=== PATIENT | female | born 1975 | race Caucasian/White ===

== ENCOUNTER 2017-07-02 23:54 | Emergency (ER) | payer MEDICAID ==
[~2017-07-02] VITALS: Ht 162.6 cm; Wt 63.2 kg
[2017-07-02 23:56] VITALS: BP 125/80; PULSE 86; RESP 14; TEMP 97.4; O2SAT 98
[2017-07-03] MEDS ORDERED: VENTAER INH (00:05)
[2017-07-03] MEDS ORDERED: SODIUM CHLOR 0.9% 1000 ML INJ 1,000 ML IV ONE (00:49)
--- NOTE | 2017-07-03 00:49 | PD ---
HPI Chief Complaint: Headache Time Seen by Provider: 00:39 Travel History International Travel<30 days: No Contact w/Intl Traveler<30days: No Traveled to known affect area: No History of Present Illness HPI The patient is a 42-year-old female that complains of severe headaches for 2-1/ 2 weeks. The headaches are intermittent and left-sided. She does not have a history of migraine headaches. She does not have a family history migraine headaches. There is been no nausea or vomiting. She denies any focal neurologic change. She states the pain is sharp pain and a 10 over 10. She denies any fever. PFSH Past Medical History Asthma: Yes Cancer: Yes (2008) Chemotherapy: Yes Diminished Hearing: No Deep Vein Thrombosis: Yes Radiation Therapy: Yes Tetanus Vaccination: Unknown Influenza Vaccination: No ?: Not LMP: irregular Past Surgical History Section: Yes Eye Surgery: Yes Social History Alcohol Use: No Tobacco Use: Yes (7 a day) Substance Use: No Allergies-Medications (Allergen,Severity, Reaction): Coded Allergies: shellfish derived (Verified Allergy, Severe, Hives, 07/03/17) Reported Meds & Prescriptions Reported Meds & Active Scripts Active Reported Ventolin Hfa 18 GM Inh (Albuterol Sulfate) 90 Mcg/Act Aer 2 Puff INH Q4-6H PRN Review of Systems Except as stated in HPI: all other systems reviewed are Neg Physical Exam Narrative GENERAL: Well-nourished, well-developed patient in moderate apparent distress with her headache pain. Her vital signs are normal. SKIN: Focused skin assessment warm/dry. HEAD: Normocephalic. EYES: No scleral icterus. No injection or drainage. NECK: Supple, trachea midline. No JVD or lymphadenopathy. The patient flexes neck fully without any hesitation, there is no meningismus present. CARDIOVASCULAR: Regular rate and rhythm without murmurs, gallops, or rubs. RESPIRATORY: Breath sounds equal bilaterally. No accessory muscle use. GASTROINTESTINAL: Abdomen soft, non-tender, nondistended. MUSCULOSKELETAL: No cyanosis, or edema. BACK: Nontender without obvious deformity. No CVA tenderness. NEUROLOGICAL: Awake and alert. Cranial nerves II through XII intact. Motor and sensory grossly within normal limits. Five out of 5 muscle strength in all muscle groups. Normal speech. Data Data Last Documented VS Vital Signs Date Time Temp Pulse Resp B/P (MAP) Pulse Ox O2 Delivery O2 Flow Rate FiO2 07/03/17 02:11 74 16 107/61 (76) 98 Room Air 07/02/17 23:56 97.4 Orders Orders Complete Blood Count With Diff (07/03/17 00:49) Basic Metabolic Panel (Bmp) (07/03/17 00:49) Ecg Monitoring (07/03/17 00:49) Iv Access Insert/Monitor (07/03/17 00:49) Oximetry (07/03/17 00:49) Sodium Chloride 0.9% Flush (Ns Flush) (07/03/17 01:00) Ketorolac Inj (Toradol Inj) (07/03/17 01:00) Prochlorperazine Inj (Compazine Inj) (07/03/17 01:00) Diphenhydramine Inj (Benadryl Inj) (07/03/17 01:00) Sodium Chlor 0.9% 1000 Ml Inj (Ns 1000 M (07/03/17 00:49) Ct Brain W/O Iv Contrast(Rout) (07/03/17 01:15) Hydromorphone Pf Inj (Dilaudid Pf Inj) (07/03/17 01:30) Labs Laboratory Tests Test 07/03/17 01:04 White Blood Count 7.7 TH/MM3 Red Blood Count 4.74 MIL/MM3 Hemoglobin 11.5 GM/DL Hematocrit 35.6 % Mean Corpuscular Volume 75.2 FL Mean Corpuscular Hemoglobin 24.3 PG Mean Corpuscular Hemoglobin Concent 32.3 % Red Cell Distribution Width 14.2 % Platelet Count 151 TH/MM3 Mean Platelet Volume 9.3 FL Neutrophils (%) (Auto) 30.1 % Lymphocytes (%) (Auto) 56.1 % Monocytes (%) (Auto) 9.6 % Eosinophils (%) (Auto) 3.7 % Basophils (%) (Auto) 0.5 % Neutrophils # (Auto) 2.3 TH/MM3 Lymphocytes # (Auto) 4.4 TH/MM3 Monocytes # (Auto) 0.7 TH/MM3 Eosinophils # (Auto) 0.3 TH/MM3 Basophils # (Auto) 0.0 TH/MM3 CBC Comment AUTO DIFF Differential Comment AUTO DIFF CONFIRMED Platelet Estimate NORMAL Platelet Morphology Comment NORMAL Blood Urea Nitrogen 9 MG/DL Creatinine 0.21 MG/DL Random Glucose 90 MG/DL Calcium Level 8.1 MG/DL Sodium Level 140 MEQ/L Potassium Level 4.1 MEQ/L Chloride Level 108 MEQ/L Carbon Dioxide Level 27.7 MEQ/L Anion Gap 4 MEQ/L Estimat Glomerular Filtration Rate 372 ML/MIN MDM Medical Decision Making Medical Screen Exam Complete: Yes Emergency Medical Condition: Yes Medical Record Reviewed: Yes Interpretation(s) The hemoglobin is 11.5 and there are 56% lymphocytes but the rest of the CBC is normal. The basic metabolic profile shows a calcium of 8.1 but is otherwise normal. The CT brain is normal. Differential Diagnosis Migraine headache, headache etiology undetermined, tension headache, cluster headache, normal pressure hydrocephalus-unlikely, intracranial bleed-highly unlikely Narrative Course It is now 0-30 and the patient is sleeping. The patient will get a prescription for Fioricet and follow-up with her primary care physician. It is possible this could be a migraine headache. Diagnosis Primary Impression: Headache Med/Other Pt SpecificInfo: Prescription(s) given Scripts Dzrgvkvbny-Urattgayqzyzx-Dzegbvmv (Fioricet) 50-300-40 Mg Cap 1-2 CAP PO Q6H Y for HEADACHE, #21 CAP 0 Refills Prov: Timmy Douglass MD 07/03/17 Disposition: 01 DISCHARGE HOME Condition: Stable Timmy Douglass MD Jul 03, 2017 00:49
[2017-07-03] MEDS ORDERED: SODIUM CHLORIDE 0.9% FLUSH 10 ML FLUSH IVF PRN (01:00)
[2017-07-03] MEDS ORDERED: diphenhydrAMINE HCL 50 MG/ML VIAL IVP ONE (01:00)
[2017-07-03] MEDS ORDERED: PROCHLORPERAZINE INJ 10 MG/2 ML VIAL IVP ONE (01:00)
[2017-07-03] MEDS ORDERED: KETOROLAC TROMETHAMINE 30 MG/ML (IVP) VIAL IVP ONE (01:00)
[2017-07-03 01:19] LABS: POTASSIUM 4.1 MEQ/L (3.5-5.1)
[2017-07-03 01:21] LABS: AUTOMATED NEUTROPHIL # 2.3 TH/MM3 (1.8-7.7); BASOPHIL % 0.5 % (0.0-2.0); EOSINOPHIL # 0.3 TH/MM3 (0-0.4); EOSINOPHIL % 3.7 % (0.0-4.0); HEMATOCRIT 35.6 % (35.0-46.0); LYMPH % 56.1 % (9.0-44.0); LYMPHOCYTE # 4.4 TH/MM3 (1.0-4.8); MEAN CELL VOLUME 75.2 FL (80.0-100.0); MEAN CORPUSCULAR HEMOGLOBIN 24.3 PG (27.0-34.0); MEAN CORPUSCULAR HGB CONC 32.3 % (32.0-36.0); MONO % 9.6 % (0.0-8.0); NEUT % 30.1 % (16.0-70.0); PLATELET COUNT 151 TH/MM3 (150-450); RED BLOOD COUNT 4.74 MIL/MM3 (4.00-5.30); RED CELL DISTRIBUTION WIDTH 14.2 % (11.6-17.2); WHITE BLOOD COUNT 7.7 TH/MM3 (4.0-11.0)
[2017-07-03 01:22] LABS: BICARBONATE 27.7 MEQ/L (21.0-32.0)
[2017-07-03 01:25] VITALS: BP 117/50; PULSE 86; RESP 16; O2SAT 99
[2017-07-03 01:26] LABS: HEMO FLAGS AUTO DIFF
[2017-07-03] MEDS ORDERED: HYDROmorphone HCL PF 1 MG/ML VIAL IVP ONE (01:30)
[2017-07-03 01:32] VITALS: BP 99/51; PULSE 87; RESP 16; O2SAT 98
[2017-07-03 01:41] LABS: PLATELET ESTIMATE SMEAR NORMAL (NORMAL); PLATELET MORPHOLOGY NORMAL (NORMAL); SCAN/DIFF AUTO DIFF CONFIRMED
--- NOTE | 2017-07-03 02:07 | RADRPT ---
EXAM DATE/TIME: 07/03/2017 01:40 [facility] COMPARISON: No previous studies available for comparison. INDICATIONS : Cephalgia. RADIATION DOSE: 60.83 CTDIvol (mGy) MEDICAL HISTORY : None SURGICAL HISTORY : None. ENCOUNTER: Initial ACUITY: 3 weeks PAIN SCALE: 10/10 LOCATION: Left cranial TECHNIQUE: Multiple contiguous axial images were obtained of the head. Using automated exposure control and adj ustment of the mA and/or kV according to patient size, radiation dose was kept as low as reasonably a chievable to obtain optimal diagnostic quality images. DICOM format image data is available electro nically for review and comparison. FINDINGS: CEREBRUM: The ventricles are normal. No evidence of midline shift, mass lesion, hemorrhage or acute infarction . No extra-axial fluid collections are seen. POSTERIOR FOSSA: The cerebellum and brainstem are intact. The 4th ventricle is midline. The cerebellopontine angle i s unremarkable. EXTRACRANIAL: There is minimal mucoperiosteal thickening in the ethmoid sinus. SKULL: The calvaria is intact. No evidence of skull fracture. CONCLUSION: No acute intracranial abnormality is identified. Montana Goodson MD on July 03, 2017 at 2:04 Board Certified Radiologist. This report was verified electronically.
[2017-07-03 02:11] VITALS: BP 107/61; PULSE 74; RESP 16; O2SAT 98
[2017-07-03] MEDS ORDERED: BUTA1CAP PO (02:32)
== END 2017-07-03 02:52 | disposition home or self-care (01) ==
LOC: PHED 23:54
DX: R51 Headache (principal); Z86.718 Personal history of other venous thrombosis and embolism
CPT/HCPCS: 70450; 80048; 85025; 96374; 96375; 99285; J0780; J1170; J1200; J1885; J7030

== ENCOUNTER 2017-11-03 18:46 | Inpatient (IN) | payer MEDICAID ==
[2017-11-03] VITALS (17 sets, daily range): BP systolic 97–135; BP diastolic 58–85; PULSE 96–168; RESP 18–29; TEMP 98.4–98.6; O2SAT 95–100
[~2017-11-03] VITALS: Ht 162.6 cm; Wt 62.9 kg
[~2017-11-03 18:46] MED LIST: BUTA1CAP PO; VENTAER INH
[2017-11-03] MEDS ORDERED: DILTIAZEM HCL 25 MG/5 ML VIAL IV PUSH ONE (19:15)
[2017-11-03 19:17] LABS: AUTOMATED NEUTROPHIL # 20.8 TH/MM3 (1.8-7.7); BASOPHIL # 0.7 TH/MM3 (0-0.2); BASOPHIL % 2.7 % (0.0-2.0); EOSINOPHIL % 0.1 % (0.0-4.0); HEMOGLOBIN 13.1 GM/DL (11.6-15.3); LYMPH % 7.7 % (9.0-44.0); LYMPHOCYTE # 1.9 TH/MM3 (1.0-4.8); MEAN CELL VOLUME 73.7 FL (80.0-100.0); MEAN CORPUSCULAR HEMOGLOBIN 22.9 PG (27.0-34.0); MEAN PLATELET VOLUME 10.1 FL (7.0-11.0); MONO % 4.8 % (0.0-8.0); MONOCYTE # 1.2 TH/MM3 (0-0.9); NEUT % 84.7 % (16.0-70.0); PLATELET COUNT 155 TH/MM3 (150-450); RED CELL DISTRIBUTION WIDTH 14.9 % (11.6-17.2); WHITE BLOOD COUNT 24.6 TH/MM3 (4.0-11.0)
--- NOTE | 2017-11-03 19:25 | PD ---
HPI Chief Complaint: Respiratory Symptoms Time Seen by Provider: 19:01 Travel History International Travel<30 days: No Contact w/Intl Traveler<30days: No Traveled to known affect area: No History of Present Illness HPI The patient is a 42-year-old female who complains of sore throat and swollen, tender cervical lymph nodes and fever since this morning. The temperature apparently was 103 at home. She has been vomiting on occasion but no diarrhea. She denies any cough. She smokes one fourth pack a day. She denies any history of atrial fibrillation. She denies any history of PAT or other cardiac dysrhythmias. She denies any chest discomfort. She denies any history of any heart disease. PFSH Past Medical History Asthma: Yes Cancer: Yes (2008) Chemotherapy: Yes Diminished Hearing: No Deep Vein Thrombosis: Yes Radiation Therapy: Yes Past Surgical History Section: Yes Eye Surgery: Yes Social History Alcohol Use: No Tobacco Use: Yes (7 a day) Substance Use: No Allergies-Medications (Allergen,Severity, Reaction): Coded Allergies: shellfish derived (Verified Allergy, Severe, Hives, 11/03/17) Reported Meds & Prescriptions Reported Meds & Active Scripts Active Reported Ventolin Hfa 18 GM Inh (Albuterol Sulfate) 90 Mcg/Act Aer 2 Puff INH Q4-6H PRN Review of Systems Except as stated in HPI: all other systems reviewed are Neg Physical Exam Narrative GENERAL: The patient is alert, oriented 3 in moderate to severe apparent distress with her sore throat. Her vital signs are normal except for heart rate of 168. SKIN: Focused skin assessment warm/dry. HEAD: Atraumatic. Normocephalic. EYES: Pupils equal and round. No scleral icterus. No injection or drainage. ENT: No nasal bleeding or discharge. Mucous membranes pink and moist. The throat shows considerable tonsillar swelling bilaterally in the tonsils are touching. Uvula is in the midline. There is an exudate present. NECK: Trachea midline. No JVD. Tender and swollen anterior cervical lymph nodes are present bilaterally. CARDIOVASCULAR: Atrial fibrillation with rapid ventricular response. No murmur appreciated. RESPIRATORY: No accessory muscle use. Clear to auscultation. Breath sounds equal bilaterally. GASTROINTESTINAL: Abdomen soft, non-tender, nondistended. Hepatic and splenic margins not palpable. MUSCULOSKELETAL: No obvious deformities. No clubbing. No cyanosis. No edema. NEUROLOGICAL: Awake and alert. No obvious cranial nerve deficits. Motor grossly within normal limits. Normal speech. PSYCHIATRIC: Appropriate mood and affect; insight and judgment normal. Data Data Last Documented VS Vital Signs Date Time Temp Pulse Resp B/P (MAP) Pulse Ox O2 Delivery O2 Flow Rate FiO2 11/03/17 20:00 117 118/64 (82) 99 Room Air 11/03/17 19:49 18 11/03/17 18:50 98.4 Orders Orders Vital Signs (Adult) [id number] (11/03/17 19:01) Information Clerk Brokerage / Telemetry JAZMIN.Q8H (11/03/17 19:01) Cardiac Rhythm JAZMIN.Q8H (11/03/17 19:01) Notify Dr: Other (11/03/17 19:01) Diltiazem Inj (Cardizem Inj) (11/03/17 19:15) Diltiazem Inj (Cardizem Inj) (11/03/17 19:15) Complete Blood Count With Diff (11/03/17 19:03) Comprehensive Metabolic Panel (11/03/17 19:03) Blood Culture (11/03/17 19:03) Urinalysis - C+S If Indicated (11/03/17 19:03) Beta Hcg (Quant/Titer) (11/03/17 19:03) Group A Rapid Strep Screen (11/03/17 19:03) Chest, Single Ap (11/03/17 19:03) Electrocardiogram (11/03/17 19:03) Troponin I (11/03/17 19:03) Prothrombin Time / Inr (Pt) (11/03/17 19:03) Act Partial Throm Time (Ptt) (11/03/17 19:03) Monoscreen (11/03/17 19:11) Methylprednisolone So Succ Inj (Solumedr (11/03/17 19:45) Ketorolac Inj (Toradol Inj) (11/03/17 20:00) Penicillin G Potassium Inj (Pfizerpen-G (11/03/17 20:00) Sodium Chlor 0.9% 1000 Ml Inj (Ns 1000 M (11/03/17 20:00) Labs Laboratory Tests Test 11/03/17 19:10 11/03/17 19:15 White Blood Count 24.6 TH/MM3 Red Blood Count 5.70 MIL/MM3 Hemoglobin 13.1 GM/DL Hematocrit 42.0 % Mean Corpuscular Volume 73.7 FL Mean Corpuscular Hemoglobin 22.9 PG Mean Corpuscular Hemoglobin Concent 31.0 % Red Cell Distribution Width 14.9 % Platelet Count 155 TH/MM3 Mean Platelet Volume 10.1 FL Neutrophils (%) (Auto) 84.7 % Lymphocytes (%) (Auto) 7.7 % Monocytes (%) (Auto) 4.8 % Eosinophils (%) (Auto) 0.1 % Basophils (%) (Auto) 2.7 % Neutrophils # (Auto) 20.8 TH/MM3 Lymphocytes # (Auto) 1.9 TH/MM3 Monocytes # (Auto) 1.2 TH/MM3 Eosinophils # (Auto) 0.0 TH/MM3 Basophils # (Auto) 0.7 TH/MM3 CBC Comment AUTO DIFF Differential Comment AUTO DIFF CONFIRMED Platelet Estimate NORMAL Platelet Morphology Comment NORMAL Prothrombin Time 12.0 SEC Prothromb Time International Ratio 1.2 RATIO Activated Partial Thromboplast Time 28.7 SEC Blood Urea Nitrogen 10 MG/DL Creatinine 0.41 MG/DL Random Glucose 99 MG/DL Total Protein 7.5 GM/DL Albumin 3.5 GM/DL Calcium Level 9.2 MG/DL Alkaline Phosphatase 146 U/L Aspartate Amino Transf (AST/SGOT) 24 U/L Alanine Aminotransferase (ALT/SGPT) 16 U/L Total Bilirubin 0.8 MG/DL Sodium Level 139 MEQ/L Potassium Level 3.7 MEQ/L Chloride Level 104 MEQ/L Carbon Dioxide Level 21.8 MEQ/L Anion Gap 13 MEQ/L Estimat Glomerular Filtration Rate 172 ML/MIN Troponin I LESS THAN 0.02 NG/ML Human Chorionic Gonadotropin, Quant 2 MIU/ML [facility] Medical Decision Making Medical Screen Exam Complete: Yes Emergency Medical Condition: Yes Medical Record Reviewed: Yes Interpretation(s) The EKG shows atrial fibrillation with response rate of [address] elevation but there is some ST segment depression particularly on one and lateral V leads. The chest x-ray shows no acute cardiopulmonary disease. The complete metabolic profile shows an alkaline phosphatase of 146 but is otherwise normal. The troponin I is normal. The beta-hCG is 2. The ProTime is 12 but the rest of the coagulation profile is normal. The CBC shows a white count of 24,600. Differential Diagnosis New-onset atrial fibrillation, strep pharyngitis, mono pharyngitis, viral pharyngitis, peritonsillar abscess, cervical lymphadenopathy, acute coronary syndrome Narrative Course The patient has no onset atrial fibrillation with rapid ventricular response. She will be admitted for this. The patient also has a rather severe strep pharyngitis with a white count of 24,600. The throat is positive on strep screen for group A strep. This is her first episode of atrial fibrillation. She will be admitted to Dr. Gee andrew, I discussed the patient with her. Diagnosis Primary Impression: Atrial fibrillation with rapid ventricular response Additional Impressions: Strep pharyngitis Leukocytosis Admitting Information Admitting Physician Requests: Admit Timmy Douglass MD Nov 03, 2017 19:25
[2017-11-03 19:26] LABS: CHLORIDE 104 MEQ/L (98-107); SODIUM (NA) 139 MEQ/L (136-145)
[2017-11-03 19:29] LABS: CALCIUM 9.2 MG/DL (8.5-10.1)
[2017-11-03 19:30] LABS: ALBUMIN 3.5 GM/DL (3.4-5.0); BICARBONATE 21.8 MEQ/L (21.0-32.0); BLOOD UREA NITROGEN 10 MG/DL (7-18); GLUCOSE,RANDOM 99 MG/DL (74-106)
[2017-11-03 19:33] LABS: ALT (GPT) 16 U/L (10-53); AST (GOT) 24 U/L (15-37); CREATININE 0.41 MG/DL (0.50-1.00); GLOMERULAR FILTRATION RATE 172 ML/MIN (>89); INTERNATIONAL NORMALIZED RATIO 1.2 RATIO
[2017-11-03 19:35] LABS: TOTAL BILIRUBIN ADULT 0.8 MG/DL (0.2-1.0); TOTAL PROTEIN 7.5 GM/DL (6.4-8.2)
[2017-11-03 19:36] LABS: ALKALINE PHOSPHATASE 146 U/L (45-117)
[2017-11-03 19:38] LABS: TROPONIN I LESS THAN 0.02 NG/ML (0.02-0.05)
[2017-11-03] MEDS: DILTIAZEM INJ 125 MG in SODIUM CHLORIDE 0.9% INJ 100 ML IV PRN (19:39)
--- NOTE | 2017-11-03 19:42 | RADRPT ---
EXAM DATE/TIME: 11/03/2017 19:22 [facility] COMPARISON: No previous studies available for comparison. INDICATIONS : Fever, cough. MEDICAL HISTORY : None. SURGICAL HISTORY : None. ENCOUNTER: Initial ACUITY: 1 day PAIN SCORE: 0/10 LOCATION: Bilateral chest FINDINGS: The lungs are clear without infiltrate, nodule, or mass. There is no appreciable pleural effusion fo r technique. Heart and mediastinum are unremarkable. CONCLUSION: No acute cardiopulmonary disease. Doreen Murrieta MD on November 03, 2017 at 19:40 Board Certified Radiologist. This report was verified electronically.
[2017-11-03] MEDS ORDERED: methylPREDNISolone SOD SUCC 125 MG/2 ML VIAL IV PUSH ONE (19:45)
[2017-11-03] MEDS ORDERED: PENICILLIN G POTASSIUM INJ 2,500,000 UNITS in SODIUM CHLORIDE 0.9% INJ 100 ML IV ONE (20:00)
[2017-11-03] MEDS ORDERED: SODIUM CHLOR 0.9% 1000 ML INJ 1,000 ML IV SCH (20:00)
[2017-11-03] MEDS ORDERED: KETOROLAC TROMETHAMINE 60 MG/2 ML (IM) VIAL IVP ONE (20:00)
[2017-11-03] MEDS ORDERED: SODIUM CHLORIDE 0.9% FLUSH 10 ML FLUSH IV FLUSH PRN (20:15)
[2017-11-03] MEDS ORDERED: ONDANSETRON HCL 4 MG/2 ML VIAL IVP PRN (20:15)
[2017-11-03] MEDS ORDERED: LACTULOSE SYRUP 20 GM/30 ML CUP PO PRN (20:15)
[2017-11-03] MEDS ORDERED: SENNOSIDES 8.6 MG TAB PO PRN (20:15)
[2017-11-03] MEDS ORDERED: BISACODYL 10 MG SUPP RECTAL PRN (20:15)
[2017-11-03] MEDS ORDERED: MORPHINE SULFATE 2 MG/ML INJ IV PUSH PRN (20:15)
[2017-11-03] MEDS ORDERED: ACETAMINOPHEN 325 MG TAB PO PRN (20:15)
[2017-11-03] MEDS ORDERED: MAGNESIUM HYDROXIDE SUSP 30 ML CUP PO PRN (20:15)
[2017-11-03 20:53] LABS: MONOSCREEN NEG (NEG)
[2017-11-03] MEDS: DOCUSATE SODIUM 50 MG/SENNA 8.6 MG TAB PO SCH (21:06)
[2017-11-03] MEDS: SODIUM CHLOR 0.9% 1000 ML INJ 1,000 ML IV SCH (21:09)
[2017-11-03] MEDS: SODIUM CHLORIDE 0.9% FLUSH 10 ML FLUSH IV FLUSH SCH (21:11)
--- NOTE | 2017-11-03 21:45 | EKG ---
Date Performed: 11/03/2017 Time Performed: 18:58:11 PTAGE: 42 years EKG: ATRIAL FIBRILLATION WITH RAPID VENTRICULAR RESPONSE MODERATE ST DEPRESSION ABNORMAL ECG NO PREVIOUS TRACING DOCTOR: Alejandro Mehta Interpretating Date/Time 11/03/2017 21:44:22
[2017-11-03] MEDS: DEXAMETHASONE SOD PHOS 4 MG/ML VIAL IV PUSH SCH (23:13)
[2017-11-03] MEDS: ACETAMINOPHEN/HYDROcodone 325 MG/5 MG TAB PO PRN (23:15)
[2017-11-04] VITALS (26 sets, daily range): BP systolic 91–123; BP diastolic 50–77; PULSE 70–109; RESP 19–33; TEMP 97.8–98.2; O2SAT 96
[2017-11-04] MEDS: PENICILLIN G POTASSIUM INJ 5,000,000 UNITS in SODIUM CHLORIDE 0.9% INJ 100 ML IV SCH ×3 (02:12→10:21)
[2017-11-04] MEDS: SODIUM CHLOR 0.9% 1000 ML INJ 1,000 ML IV SCH ×2 (03:55→08:33)
[2017-11-04] MEDS ORDERED: SODIUM CHLORID 0.9% 500 ML INJ 500 ML IV ONE (04:30)
[2017-11-04] MEDS: DILTIAZEM INJ 125 MG in SODIUM CHLORIDE 0.9% INJ 100 ML IV PRN (04:33)
[2017-11-04 05:21] LABS: BILIRUBIN, URINE NEG (NEG); BLOOD, URINE NEG (NEG); GLUCOSE,URINE 500 mg/dL (NEG); KETONE, URINE 15 mg/dL (NEG); NITRITE,URINE NEG (NEG); PH, URINE 5.5 (5.0-8.5); URINE LEUKOCYTE ESTERASE NEG (NEG)
[2017-11-04 06:10] LABS: AUTOMATED NEUTROPHIL # 13.4 TH/MM3 (1.8-7.7); HEMATOCRIT 34.5 % (35.0-46.0); HEMOGLOBIN 11.1 GM/DL (11.6-15.3); LYMPH % 6.1 % (9.0-44.0); LYMPHOCYTE # 0.9 TH/MM3 (1.0-4.8); MEAN CELL VOLUME 74.1 FL (80.0-100.0); MEAN CORPUSCULAR HEMOGLOBIN 23.8 PG (27.0-34.0); MEAN CORPUSCULAR HGB CONC 32.1 % (32.0-36.0); MEAN PLATELET VOLUME 9.6 FL (7.0-11.0); MONO % 2.9 % (0.0-8.0); MONOCYTE # 0.4 TH/MM3 (0-0.9); PLATELET COUNT 121 TH/MM3 (150-450); RED BLOOD COUNT 4.66 MIL/MM3 (4.00-5.30); RED CELL DISTRIBUTION WIDTH 14.9 % (11.6-17.2); WHITE BLOOD COUNT 14.7 TH/MM3 (4.0-11.0)
[2017-11-04] MEDS: ACETAMINOPHEN/HYDROcodone 325 MG/5 MG TAB PO PRN (06:10)
[2017-11-04 06:12] LABS: CHLORIDE 111 MEQ/L (98-107); SODIUM (NA) 142 MEQ/L (136-145)
[2017-11-04 06:16] LABS: CALCIUM 8.6 MG/DL (8.5-10.1)
[2017-11-04 06:17] LABS: URINE COLOR YELLOW (YELLW/STRAW)
[2017-11-04 06:18] LABS: MUCUS URINE MOD /lpf (OCC)
[2017-11-04 06:19] LABS: BACTERIA, URINE MOD /hpf
[2017-11-04 06:20] LABS: WBC, URINE 0-2 /hpf (0-5)
[2017-11-04 06:35] LABS: ALBUMIN 2.6 GM/DL (3.4-5.0); ALKALINE PHOSPHATASE 116 U/L (45-117); ALT (GPT) 22 U/L (10-53); AST (GOT) 34 U/L (15-37); BLOOD UREA NITROGEN 10 MG/DL (7-18); CREATININE 0.23 MG/DL (0.50-1.00); GLOMERULAR FILTRATION RATE 335 ML/MIN (>89); GLUCOSE,RANDOM 179 MG/DL (74-106); TOTAL BILIRUBIN ADULT 0.7 MG/DL (0.2-1.0); TOTAL PROTEIN 6.2 GM/DL (6.4-8.2); TROPONIN I LESS THAN 0.02 NG/ML (0.02-0.05)
[2017-11-04 07:06] LABS: BANDS 15 % (0-6); LYMPHOCYTES 5 % (9-44); MONOCYTES 1 % (0-8); NEUTROPHIL # MANUAL DIFF 13.8 TH/MM3 (1.8-7.7); POLYS (SEG NEUTROPHILS) 79 % (16-70)
[2017-11-04 07:07] LABS: ROULEAUX PRESENT (NORMAL)
[2017-11-04] MEDS: DEXAMETHASONE SOD PHOS 4 MG/ML VIAL IV PUSH SCH (08:32)
[2017-11-04] MEDS: SODIUM CHLORIDE 0.9% FLUSH 10 ML FLUSH IV FLUSH SCH (08:32)
[2017-11-04] MEDS: DOCUSATE SODIUM 50 MG/SENNA 8.6 MG TAB PO SCH (08:32)
[2017-11-04] MEDS ORDERED: HEPARIN SODIUM - SQ 10,000 UNITS/ML VIAL SQ SCH (09:00)
--- NOTE | 2017-11-04 09:48 | MB ---
cc: PHILL RIVERA DO DATE OF CONSULTATION 11/04/2017 REASON FOR CONSULTATION Atrial fibrillation with rapid ventricular response. HISTORY OF PRESENT ILLNESS Cortney Purcell is a pleasant 42-year-old female who originally presented to [facility] emergency room on November 03, 2017 due to a sore throat with swollen tender cervical lymph nodes. She also noted that she had a fever with a temperature of 103 at home. She is unsure if she has had any sick contacts. She denies chest pain, shortness of breath or palpitations. On arrival, she was found to be in atrial fibrillation with rapid ventricular response and also was found to be positive for Strep pharyngitis. She was admitted and I was consulted for the atrial fibrillation with rapid ventricular response. PAST MEDICAL HISTORY 1. Aspirin 2. Cervical cancer 3. Chemotherapy for cervical cancer 4. History of DVTs during her first . PAST SURGICAL HISTORY 1. 2. Eye surgery ALLERGIES SHELLFISH MEDICATIONS Albuterol 2 puffs every 4-6 hours as needed for shortness of breath. FAMILY HISTORY Denies premature coronary artery disease or sudden cardiac within the family. SOCIAL HISTORY Denies alcohol or drug abuse. Does smoke A half pack of cigarettes a day. REVIEW OF SYSTEMS 14-systems were reviewed including osteopathic pertinent positives and negatives above, otherwise negative. PHYSICAL EXAMINATION VITAL SIGNS: Temperature 98.2, heart rate 74, blood pressure 109/55, respirations 20, pulse ox 96% on room air. GENERAL: The patient appears well in no acute distress, alert awake and oriented x3. HEAD, EYES, EARS, NOSE, AND THROAT: Extraocular muscles intact. Mucous membranes moist. NECK: Supple. No JVD at 45 degrees. No carotid bruits heard bilaterally. Carotid upstroke is brisk in nature. HEART: Irregularly irregular. Positive first and second heart sounds with no murmurs, gallops or rubs. LUNGS: Clear to auscultation bilaterally. No wheezes, rales or rhonchi. ABDOMEN: Soft, nontender, nondistended. No organomegaly noted. EXTREMITIES: Show no clubbing, cyanosis or edema. Femoral and distal pulses intact bilaterally. NEUROLOGIC: No focal deficits. SKIN: Warm, dry and intact. OSTEOPATHIC: No kyphoscoliosis, lordosis or paraspinal tender points. LABORATORY FINDINGS Hemoglobin 11.1, hematocrit 34.5, platelets 121. Potassium 3.2, BUN 10, creatinine 0.23, troponin negative x3. TSH less than 0.0005. Positive for group A Strep antigen from a throat culture. Electrocardiogram (November 03, 2017 at 1858) atrial fibrillation with rapid ventricular response, nonspecific ST-T wave changes. IMPRESSIONS 1. Atrial fibrillation with rapid ventricular response, most likely secondary to overall illness as well as possible hyperthyroidism. 2. Strep pharyngitis 3. Low TSH possible hyperthyroid 4. Tobacco abuse RECOMMENDATIONS 1. Ms. Purcell presented with Strep pharyngitis and was found to have atrial fibrillation with rapid ventricular response. 2. This is most likely due to her overall illness as well as her possible hyperthyroidism, although this needs further workup. I do not believe at this time that she needs further ischemic evaluation as there does not appear to be underlying coronary artery disease as a cause. 3. She has been started on a Cardizem drip at 5 mg an hour and this will be changed to Cardizem 30 mg q.i.d. and on discharge this can be changed to Cardizem CD 120 mg daily if she is stable on that dose. 4. We will check a 2-D echo to look at her overall left ventricular function, cardiac structure and possible valvulopathies. 5. She is technically a CHADS-VASc of one due to female gender, so we will plan on placing her on aspirin 81 mg daily for anticoagulation. 6. I discussed with her for greater than three minutes about tobacco cessation. 7. As far as her possible hyperthyroidism goes, this needs to be further worked up. 8. From a cardiovascular standpoint, if no problems with the echo, heart rates are controlled on he Cardizem oral, no further workup is needed at this time. 9. She does have a history of DVT and was on Coumadin and Lovenox for her pregnancies. Most likely this was due to venostasis during her . She follows up with a drop board man in [place] and recommend following up post hospital discharge. Thank you for allowing me to see Cortney Purcell, if there are any questions, please do not hesitate to call. Phill Rivera DO SIOBHANP/BLUE /9:07 AM /9:24 AM
[2017-11-04 10:18] LABS: CHOLESTEROL 84 MG/DL (120-200); TRIGLYCERIDES 40 MG/DL (42-150)
[2017-11-04 10:20] LABS: CHOLESTEROL/ HDL RATIO 1.67 RATIO; HDL CHOLESTEROL 50.1 MG/DL (40.0-60.0); LDL CHOLESTEROL 26 MG/DL (0-99)
[2017-11-04] MEDS ORDERED: POTASSIUM CHLORIDE 10 MEQ CONTROLLED RELEASE TAB PO SCH (11:00)
[2017-11-04] MEDS ORDERED: DILTIAZEM HCL 30 MG TAB PO SCH (12:00)
[2017-11-04] MEDS ORDERED: BENZOCAINE 6 MG/MENTHOL 10 MG LOZENGE BUCCAL PRN (12:00)
[2017-11-04] MEDS ORDERED: DILT31TA PO (13:53)
[2017-11-04] MEDS ORDERED: AMOX500T PO (13:53)
[2017-11-04] MEDS ORDERED: ASPI81 CHEW (13:53)
--- NOTE | 2017-11-04 13:54 | HHI.DCPOC ---
Discharge Care Plan Diagnosis: (1) Strep pharyngitis (2) Atrial fibrillation with rapid ventricular response Goals to Promote Your Health * To prevent worsening of your condition and complications * To maintain your health at the optimal level Directions to Meet Your Goals Take your medications as prescribed Follow your dietary instruction Follow activity as directed Keep your appointments as scheduled Take your immunizations and boosters as scheduled If your symptoms worsen call your PCP, if no PCP go to Urgent Care Center or Emergency Room Smoking is Dangerous to Your Health. Avoid second hand smoke Call the 24-hour hour crisis hotline for domestic abuse at Nessa Daugherty MD Nov 04, 2017 13:54
[2017-11-04] MEDS ORDERED: KETOROLAC TROMETHAMINE 30 MG/ML (IVP) VIAL IV PUSH ONE (14:00)
[2017-11-04] MEDS ORDERED: methylPREDNISolone SOD SUCC 40 MG/1 ML VIAL IV PUSH ONE (14:00)
--- NOTE | 2017-11-04 15:55 | ECHRPT ---
Indication: A-fib CONCLUSIONS The left ventricular systolic function is normal with an estimated ejection fraction in the range of 65-70%. Normal left ventricular size. Wall thickness is normal. No regional wall motion abnormalities are present. The right ventriclar size is upper limits of normal. The right atrial size is upper limits of normal. Trace mitral valve regurgitation. Trace aortic valve regurgitation. There is trace tricuspid valve regurgitation. The estimated pulmonary arterial pressure is 36.6 mmHg. BP: 110 / 65 HR: 73 Rhythm: Atrial fibrillation MEASUREMENTS (Male / Female) Normal Values Technical Quality:Good 2D ECHO LV Diastolic Diameter PLAX 4.7 cm 4.2 - 5.9 / 3.9 - 5.3 cm LV Systolic Diameter PLAX 3.1 cm IVS Diastolic Thickness 1.0 cm 0.6 - 1.0 / 0.6 - 0.9 cm LVPW Diastolic Thickness 1.0 cm 0.6 - 1.0 / 0.6 - 0.9 cm LV Relative Wall Thickness 0.4 RV Internal Dim ED PLAX 2.8 cm LVOT Diameter 2.3 cm LA Systolic Diameter LX 3.6 cm 3.0 - 4.0 / 2.7 - 3.8 cm LV Ejection Fraction MOD 4C 70.0 % LV Cardiac Index MOD 4C 3630.8 cm/minm LV Ejection Fraction 4C AL 70.1 % LV Cardiac Index 4C AL 3764.3 cm/minm M-MODE Aortic Root Diameter MM 2.9 cm LA Systolic Diameter MM 3.7 cm LA Ao Ratio MM 1.3 AV Cusp Separation MM 2.3 cm DOPPLER AV Peak Velocity 163.0 cm/s AV Peak Gradient 10.6 mmHg AI Peak Velocity 336.5 cm/s AI Peak Gradient 45.3 mmHg AI Pressure Half Time 1189.5 ms LVOT Peak Velocity 135.0 cm/s LVOT Peak Gradient 7.3 mmHg AV Area Cont Eq pk 3.4 cm MV Area PHT 2.9 cm LV E' Lateral Velocity 14.5 cm/s LV E' Septal Velocity 8.9 cm/s TR Peak Velocity 258.0 cm/s TR Peak Gradient 26.6 mmHg Right Atrial Pressure 10.0 mmHg Pulmonary Artery Systolic Pressu 36.6 mmHg Right Ventricular Systolic Press 36.6 mmHg FINDINGS LEFT VENTRICLE The left ventricular systolic function is normal with an estimated ejection fraction in the range of 65-70%. Normal left ventricular size. Wall thickness is normal. No regional wall motion abnormalities are present. RIGHT VENTRICLE The right ventriclar size is upper limits of normal. LEFT ATRIUM The left atrial size is normal. RIGHT ATRIUM The right atrial size is upper limits of normal. ATRIAL SEPTUM Normal atrial septal thickness without atrial level shunting by limited color doppler interrogation. AORTA The aortic root and proximal ascending aorta are normal in size on limited imaging. MITRAL VALVE Structurally normal mitral valve. Trace mitral valve regurgitation. AORTIC VALVE Trileaflet aortic valve. Trace aortic valve regurgitation. TRICUSPID VALVE Structurally normal tricuspid valve. There is trace tricuspid valve regurgitation. The estimated pulmonary arterial pressure is 36.6 mmHg. PULMONARY VALVE No pulmonary valve regurgitation or stenosis. VESSELS The inferior vena cava is normal in size. PERICARDIUM No pericardial effusion. Indio Arroyo MD, FACC (Electronically Signed) Final Date:04 November 2017 15:54
[2017-11-05] MEDS ORDERED: ASPIRIN 81 MG CHEW TAB CHEW SCH (09:00)
--- NOTE | 2017-11-06 10:55 | HHI.HP ---
[facility] [place] No Primary Care Physician Admission Diagnosis atrial fibrillation with rapid ventricular response, strep pharyngit Diagnoses: Chief Complaint: throat pain Travel History International Travel<30 Days: No Contact w/Intl Traveler <30 Da: No Traveled to Known Affected Are: No History of Present Illness Patient is a 42-year-old female with minimal past history. She had acute onset of sore throat, fever and felt as is seh could not swallow. She was seen in the ER and found to have Strep Pharyngitis. She was started on antibiotics, and then developed Afib. She was seen by cardiology and recommended for medical management and outpatient follow up. Review of Systems Constitutional: DENIES: Diaphoretic episodes, Fatigue, Fever, Weight gain, Weight loss, Chills, Dizziness, Change in appetite, Night Sweats Endocrine: DENIES: Abnorml menstrual pattern, Heat/cold intolerance, Polydipsia , Polyuria, Polyphagia Eyes: DENIES: Blurred vision, Diplopia, Eye inflammation, Eye pain, Vision loss , Photosensitivity, Double Vision Ears, nose, mouth, throat: DENIES: Tinnitus, Hearing loss, Vertigo, Nasal discharge, Oral lesions, Throat pain, Hoarseness, Ear Pain, Running Nose, Epistaxis, Sinus Pain, Toothache, Odynophagia Respiratory: DENIES: Apneas, Cough, Snoring, Wheezing, Hemoptysis, Sputum production, Shortness of breath Cardiovascular: DENIES: Chest pain, Palpitations, Syncope, Dyspnea on Exertion , PND, Lower Extremity Edema, Orthopnea, Claudication Gastrointestinal: DENIES: Abdominal pain, Black stools, Bloody stools, Constipation, Diarrhea, Nausea, Vomiting, Difficulty Swallowing, Anorexia Genitourinary: DENIES: Abnormal vaginal bleeding, Dysmenorrhea, Dyspareunia, Sexual dysfunction, Urinary frequency, Urinary incontinence, Urgency, Hematuria , Dysuria, Nocturia, Vaginal discharge Musculoskeletal: DENIES: Joint pain, Muscle aches, Stiffness, Joint Swelling, Back pain, Neck pain Integumentary: DENIES: Abnormal pigmentation, Pruritus, Rash, Nail changes, Breast masses, Breast skin changes, Nipple discharge Hematologic/lymphatic: DENIES: Bruising, Lymphadenopathy Immunologic/allergic: DENIES: Eczema, Urticaria Neurologic: DENIES: Abnormal gait, Headache, Localized weakness, Paresthesias, Seizures, Speech Problems, Tremor, Poor Balance Psychiatric: DENIES: Anxiety, Confusion, Mood changes, Depression, Hallucinations, Agitation, Suicidal Ideation, Homicidal Ideation, Delusions Except as stated in HPI: all other systems reviewed are Neg (throat pain) Past Family Social History Allergies: Coded Allergies: shellfish derived (Verified Allergy, Severe, Hives, 11/03/17) Physical Exam Physical Exam GENERAL: This is a well-nourished, well-developed patient, she is hoarse SKIN: No rashes, ecchymoses or lesions. Cool and dry. HEAD: Atraumatic. Normocephalic. No temporal or scalp tenderness. EYES: Pupils equal round and reactive. Extraocular motions intact. No scleral icterus. No injection or drainage. ENT: Nose without bleeding, purulent drainage or septal hematoma. Throat without erythema, tonsillar hypertrophy or exudate. Uvula midline. Airway patent. NECK: Trachea midline. No JVD or lymphadenopathy. Supple, nontender, no meningeal signs. CARDIOVASCULAR: Regular A. fib without murmurs, gallops, or rubs. RESPIRATORY: Clear to auscultation. Breath sounds equal bilaterally. No wheezes , rales, or rhonchi. GASTROINTESTINAL: Abdomen soft, non-tender, nondistended. No hepato-splenomegaly , or palpable masses. No guarding. MUSCULOSKELETAL: Extremities without clubbing, cyanosis, or edema. No joint tenderness, effusion, or edema noted. No calf tenderness. Negative Homans sign bilaterally. NEUROLOGICAL: Awake and alert. Cranial nerves II through XII intact. Motor and sensory grossly within normal limits. Five out of 5 muscle strength in all muscle groups. Normal speech. Laboratory Date/Time Source Procedure Growth Status 11/03/17 19:20 Blood Peripheral Aerobic Blood Culture - Preliminary NO GROWTH IN 2 DAYS Resulted 11/03/17 19:20 Anaerobic Blood Culture - Preliminary Staph Sp Coagulase Negative Resulted 11/03/17 19:10 Throat Group A Streptococcus Screen (JOSE DANIEL) - Final Pos For Grp A Strep Antigen Complete 11/04/17 05:18 Urine Clean Catch Urine Culture - Final NO GROWTH IN 48 HOURS. Complete Result Diagram: 11/04/17 0545 11/04/17 0545 Imaging Last Impressions Chest X-Ray 11/03/17 1903 Signed Impressions: Service Date/Time: Friday, November 03, 2017 19:22 - CONCLUSION: No acute cardiopulmonary disease. MD Vikram Ovalles VTE Risk Assessment Vikram VTE Risk Assessment: No/Low Risk (score <= 1) Caprini Risk Assessment Model Point Value = 1 Point Value = 2 Point Value = 3 Point Value = 5 Age 41-60 Minor surgery BMI > 25 kg/m2 Swollen legs Varicose veins or History of unexplained or recurrent spontaneous Oral contraceptives or hormone replacement Sepsis (< 1 month) Serious lung disease, including pneumonia (< 1 month) Abnormal pulmonary function Acute myocardial infarction Congestive heart failure (< 1 month) History of inflammatory bowel disease Medical patient at bed rest Age 61-74 Arthroscopic surgery Major open surgery (> 45 min) Laparoscopic surgery (> 45 min) Malignancy Confined to bed (> 72 hours) Immobilizing plaster cast Central venous access Age >= 75 History of VTE Family history of VTE Factor V Leiden Prothrombin [id number] Lupus anticoagulant Anticardiolipin antibodies Elevated serum homocysteine Heparin-induced thrombocytopenia Other congenital or acquired thrombophilia Stroke (< 1 month) Elective arthroplasty Hip, pelvis, or leg fracture Acute spinal cord injury (< 1 month) Prophylaxis Regimen Total Risk Factor Score Risk Level Prophylaxis Regimen 0-1 Low Early ambulation 2 Moderate Order ONE of the following: *Sequential Compression Device (SCD) *Heparin 5000 units SQ BID 3-4 Higher Order ONE of the following medications: *Heparin 5000 units SQ TID *Enoxaparin/Lovenox 40 mg SQ daily (WT < 150 kg, CrCl > 30 mL/min) *Enoxaparin/Lovenox 30 mg SQ daily (WT < 150 kg, CrCl > 10-29 mL/min) *Enoxaparin/Lovenox 30 mg SQ BID (WT < 150 kg, CrCl > 30 mL/min) AND/OR *Sequential Compression Device (SCD) 5 or more Highest Order ONE of the following medications: *Heparin 5000 units SQ TID (Preferred with Epidurals) *Enoxaparin/Lovenox 40 mg SQ daily (WT < 150 kg, CrCl > 30 mL/min) *Enoxaparin/Lovenox 30 mg SQ daily (WT < 150 kg, CrCl > 10-29 mL/min) *Enoxaparin/Lovenox 30 mg SQ BID (WT < 150 kg, CrCl > 30 mL/min) AND *Sequential Compression Device (SCD) Assessment and Plan Problem List: (1) Tachycardia ICD Code: R00.0 - Tachycardia, unspecified Plan: Secondary to A. fib Continue Cardizem Echo within normal limits Cardiology consult appreciated (2) Group A streptococcal infection ICD Code: B95.0 - Streptococcus, group A, as the cause of diseases classified elsewhere Plan: Continue prednisone for group A pharyngitis (3) Abnormal TSH ICD Code: R94.6 - Abnormal results of thyroid function studies Plan: Patient would not like further inpatient workup and would like to follow with her primary care physician Assessment and Plan Discharge home activity unrestricted diet regular Discussed Condition With Patient, [employer]PL[employer] MANAGER Nessa Briceño MD Nov 06, 2017 10:55
== END 2017-11-04 14:30 | disposition home or self-care (01) | DRG 153 ==
LOC: PHED 18:46 → PHEDA 20:17 → PHICU 22:11
PROVIDERS: ADMIT Hospitalist; ATTEND Hospitalist
DX: J02.0 Streptococcal pharyngitis (principal); I48.91 Unspecified atrial fibrillation; R94.6 Abnormal results of thyroid function studies; F17.210 Nicotine dependence, cigarettes, uncomplicated; Z85.41 Personal history of malignant neoplasm of cervix uteri; Z92.21 Personal history of antineoplastic chemotherapy
CPT/HCPCS: 71010; 80053; 80061; 81001; 84436; 84443; 84484; 84702; 85007; 85025; 85027; 85610; 85730; 86308; 86403; 87040; 87077; 87086; 87186; 87205; 87880; 93005; 93306; 96365; 96375; J1100; J1644; J1885; J2270; J2405; J2540; J2930; J7030; J7040